=== PATIENT | female | born 1960 | race Caucasian/White ===

== ENCOUNTER → 2016-06-07 | Outpatient (CLI) | payer OTHER ==
[~2016-06-07] MED LIST: 'PARAFON FORTE500 M1 PO; ALBUTEROL0.09 MG/A2 INH; AMLODIPINE BESYL5 MG PO; AMOXICILLIN500 M2 PO; AMOXICILLIN500 MG PO; AMOXIL500 MG PO; ASPIRIN81 M1 PO; AUGMENTIN 875 M1 TAB PO; CARDURA4 MG PO; CHOLESTEROL PILL; CIPRO500 MG PO; CIPROFLOXACIN500 MG PO; CLARITIN10 MG PO; CYCLOBENZAPRINE10 MG PO; DIABETIC PILL; DOXYCYCLINE100 M3 PO; DUONEB 3 MG/3 ML3 M1 INH; FENOFIBRATE130 M1 PO; FIORICET 325 MG1 TAB PO; FLONASE0.05 MG/AC NS; FLOVENT HFA12 GM IH; GLIPIZIDE5 MG PO; GLUCOPHAGE500 M1 PO; GLYXAMBI1 TAB PO; HYCODAN 1.5 MG480 M1 PO; HYDROCODONE BIT1 T11 PO; JARDIANCE10 MG PO; LEVAQUIN750 M1 PO; LOMOTIL 0.025 M1 TA1 PO; LOTREL 5 MG-101 CAP PO; MEDROL DOSEPAK4 MG PO; NEXIUM40 MG PO; NICOTINE T21 MG/24 H TD; NORCO 10-325 T1 EACH PO; NORCO 5-325 TA1 EACH PO; NORCO 7.5-3251 EACH PO; NORTRIPTYLINE H10 M1 PO; NORVASC5 MG PO; ONGLYZA5 MG PO; PERCOCET 325 MG1 TA5 PO; PREDNICOT10 MG PO; PREDNICOT20 MG PO; PREDNISONE10 MG PO; PYRIDIUM200 MG PO; REGLAN10 M1 PO; ROBITUSSIN DM120 ML PO; TENORMIN100 MG PO; TENORMIN25 MG PO; TRADJENTA5 M1 PO; TRAMADOL HCL50 MG PO; TRIAMTERENE/HCT1 TAB PO; VALIUM10 MG PO; VIBRAMYCIN100 MG PO; VICODIN 5/500 505 MG PO; VISTARIL25 M2 PO; VITAMIN D-32000 UNIT PO; VITAMIN D2400 UNIT PO; ZITHROMAX Z PA250 MG PO; ZITHROMAX250 MG PO; ZOCOR40 MG PO; ZOFRAN ODT4 MG SL; [UNRECOGNIZED DRUG - REMARK]
[2016-06-07 16:25] LABS: BASO # 0.1 10*3/uL (0.0-0.1); BASO % 1.2 % (0.0-1.0); EOS # 0.3 10*3/uL (0.0-0.4); EOS % 3.4 % (1.0-4.0); HEMATOCRIT 43.6 % (37.0-47.0); HEMOGLOBIN 14.1 g/dl (12.0-16.0); LYMPH # 2.6 10*3/uL (1.3-4.4); MEAN CELL VOLUME 91.4 fl (81.0-99.0); MEAN CORPUSCULAR HGB 29.6 pg (27.0-31.0); MEAN CORPUSCULAR HGB CONC 32.3 g/dl (33.0-37.0); MONO # 0.8 10*3/uL (0.1-1.0); MONO % 8.2 % (3.0-9.0); NEUT # 5.4 10*3/uL (2.3-7.9); NEUT % 58.9 % (47.0-73.0); PLATELET COUNT AUTOMATED 286 10*3/uL (130-400); RED BLOOD COUNT 4.77 10*6/uL (4.10-5.10); RED CELL DISTRI WIDTH 13.3 % (0-14.5); WHITE BLOOD COUNT 9.1 10*3/uL (4.8-10.8)
[2016-06-07 16:36] LABS: BILIRUBIN NEGATIVE (NEGATIVE); BLOOD NEGATIVE (NEGATIVE); CLARITY SL CLOUDY (CLEAR); COLOR YELLOW (YELLOW); GLUCOSE 2+ (NEGATIVE); KETONE NEGATIVE (NEGATIVE); LEUKO ESTERASE 1+ (NEGATIVE); NITRITE NEGATIVE (NEGATIVE); PH 7.5 (5.0-9.0); PROTEIN NEGATIVE (NEGATIVE); UROBILINOGEN 0.2 E.U./dl (0.2-1.0)
[2016-06-07 16:44] LABS: URINE TP/CRE RATIO 0.1 (<0.21)
[2016-06-07 16:50] LABS: ALBUMIN 3.9 gm/dl (3.1-4.5); PHOSPHOROUS 3.4 mg/dL (2.5-4.9); POTASSIUM 3.7 mmol/L (3.5-5.1)
[2016-06-07 17:01] LABS: VITAMIN D, 25-HYDROXY 36.5 ng/mL (30-100)
[2016-06-07 17:02] LABS: PTH INTACT 37.6 pg/mL (14.0-72.0)
[2016-06-07 17:07] LABS: BACTERIA TRACE; EPITHELIAL CELLS 15-20
== END | disposition home or self-care (01) ==
LOC: LAB 15:48
PROVIDERS: Internal Medicine Nephrology
DX: N18.3 Chronic kidney disease, stage 3 (moderate) (principal); E55.9 Vitamin D deficiency, unspecified

== ENCOUNTER 2016-06-13 19:31 | Emergency (ER) | payer OTHER ==
[~2016-06-13] VITALS: Ht 157.4 cm; Wt 80.7 kg
[~2016-06-13 19:31] MED LIST changes: -ASPIRIN81 M1 PO; -DOXYCYCLINE100 M3 PO; -LEVAQUIN750 M1 PO; -PREDNISONE10 MG PO
[2016-06-13 20:19] LABS: BASO # 0.1 10*3/uL (0.0-0.1); EOS # 0.1 10*3/uL (0.0-0.4); HEMATOCRIT 44.8 % (37.0-47.0); HEMOGLOBIN 14.8 g/dl (12.0-16.0); LYMPH # 1.6 10*3/uL (1.3-4.4); LYMPH % 15.3 % (27.0-41.0); MEAN CELL VOLUME 90.1 fl (81.0-99.0); MEAN CORPUSCULAR HGB 29.8 pg (27.0-31.0); MEAN PLATELET VOLUME 10.9 fl (9.6-12.3); MONO # 0.5 10*3/uL (0.1-1.0); NEUT # 8.1 10*3/uL (2.3-7.9); NEUT % 77.3 % (47.0-73.0); PLATELET COUNT AUTOMATED 295 10*3/uL (130-400); RED BLOOD COUNT 4.97 10*6/uL (4.10-5.10); RED CELL DISTRI WIDTH 13.2 % (0-14.5); WHITE BLOOD COUNT 10.5 10*3/uL (4.8-10.8)
[2016-06-13 20:35] LABS: ALBUMIN 3.9 gm/dl (3.1-4.5); BILIRUBIN, TOTAL 0.3 mg/dl (0.2-1.0)
[2016-06-13] MEDS ORDERED: DOXYCYCLINE100 M3 PO (20:59)
[2016-06-13] MEDS ORDERED: PREDNISONE10 MG PO (20:59)
[2016-06-13] MEDS ORDERED: VISTARIL25 M2 PO (21:01)
[2016-08-09] MEDS ORDERED: MEDROL DOSEPAK4 MG PO (17:23)
[2016-08-09] MEDS ORDERED: LEVAQUIN750 M1 PO (17:23)
== END 2016-06-13 21:02 | disposition home or self-care (01) ==
LOC: ED 19:31
PROVIDERS: Registered Nurse
DX: J40 Bronchitis, not specified as acute or chronic (principal); F41.9 Anxiety disorder, unspecified; J44.9 Chronic obstructive pulmonary disease, unspecified; F17.210 Nicotine dependence, cigarettes, uncomplicated; Z88.1 Allergy status to other antibiotic agents; Z88.5 Allergy status to narcotic agent; Z88.6 Allergy status to analgesic agent

== ENCOUNTER 2016-06-22 20:07 | Inpatient (IN) | payer OTHER ==
[~2016-06-22] VITALS: Ht 160 cm; Wt 76.8 kg
--- NOTE | ~2016-06-22 | CON ---
[place], [place] REPORT OF CONSULTATION [id number] UN[facility] #: [id number] ROOM: 515 DOCTOR: MINERVA ADDISON MD BIRTHDATE: [birth year] DOS: 06/23/2016 HISTORY OF PRESENT ILLNESS: This is a 55-year-old -[place] woman with a history of essential hypertension, diabetes mellitus, hyperlipidemia, chronic kidney disease but no family history of premature coronary disease. She has smoked in the past and now is no longer using tobacco products. She has significant COPD that limits her activity. She has had a tubal ligation. No other major surgery. She was admitted to the hospital to the Emergency Department because of left-sided chest pain that was rather sharp and stabbing at times, it appeared a few days ago, and it still bothers her. She also has some jumping feeling in the left side of the chest. She feels it may be her heart skipping beat, but she has not had any dizziness, loss of consciousness. No swelling of the lower extremities. There has not been any sweating or nausea or worsening breathing with the chest pain. In the past, she does not recall any exertional symptoms. HOME MEDICATIONS: Include amlodipine 5 mg daily, atenolol 100 mg daily, doxazosin 4 mg daily, Jardiance, Claritin, Tradjenta, prednisone, Zocor, doxycycline, and albuterol inhaler. PHYSICAL EXAMINATION: GENERAL: The patient who is slightly overweight, very pleasant, alert. Her complexion is fine. There is no thyromegaly or finger clubbing. VITAL SIGNS: Pulse is regular at 60 beats per minute, blood pressure 126/78. NECK: JVP is normal. No bruit in the neck. HEART: There is no cardiomegaly. Auscultation reveals distant heart sound. EXTREMITIES: No edema of the lower extremity. Pedal pulses are easily appreciated. HEART: She has oxygen on and is not tachypneic. Percussion note is normal. RESPIRATORY: Auscultation with fairly improved condition, breath sounds with some rhonchi, but no wheezing. The third, fourth, fifth, and sixth left costochondral junctions are exquisitely tender, not so on the right side. ECGs have shown normal sinus rhythm and a normal pattern. Troponin I levels are also normal. IMPRESSION: This patient's chest pain is most likely due to left-sided costochondritis. I do not recommend any further cardiac workup. NSAIDs are usually used to help with inflammation, which are of questionable use to begin with because of renal insufficiency these are contraindicated. I think tramadol for a few days may be helpful along with some hot packs to the local area. I thank you for this consult. [place], [place] REPORT OF CONSULTATION NAME: ALYSON GRECO UNIT #: [id number] ROOM: [facility] DOCTOR: MINERVA ADDISON MD BIRTHDATE: [birth year] MINERVA ADDSION MD CM:CONSTR:REPORT OF CONSULTATION 1255 06/23/16 2258 interface
[~2016-06-22 20:07] MED LIST changes: +DOXYCYCLINE100 M3 PO; +PREDNISONE10 MG PO
[2016-06-22 20:41] VITALS: BP 147/98
[2016-06-22 21:17] LABS: BASO # 0.1 10*3/uL (0.0-0.1); BASO % 0.3 % (0.0-1.0); HEMATOCRIT 47.3 % (37.0-47.0); HEMOGLOBIN 15.9 g/dl (12.0-16.0); IG # 0.3 10*3/uL (0.0-0.1); LYMPH # 1.6 10*3/uL (1.3-4.4); MEAN CELL VOLUME 88.9 fl (81.0-99.0); MEAN CORPUSCULAR HGB 29.9 pg (27.0-31.0); MEAN CORPUSCULAR HGB CONC 33.6 g/dl (33.0-37.0); MEAN PLATELET VOLUME 11.2 fl (9.6-12.3); MONO # 0.7 10*3/uL (0.1-1.0); MONO % 3.7 % (3.0-9.0); NEUT # 17.2 10*3/uL (2.3-7.9); NEUT % 86.7 % (47.0-73.0); PLATELET COUNT AUTOMATED 329 10*3/uL (130-400); RED BLOOD COUNT 5.32 10*6/uL (4.10-5.10); RED CELL DISTRI WIDTH 12.9 % (0-14.5); WHITE BLOOD COUNT 19.8 10*3/uL (4.8-10.8)
[2016-06-22 21:36] LABS: BUN 34 mg/dl (7-24); CARBON DIOXIDE 24 mmol/L (21-32); CHLORIDE 105 mmol/L (98-107); EST GLOM FILT AFRICAN AMERICAN 42 ml/min; GLUCOSE 236 mg/dL (65-99); POTASSIUM 4.2 mmol/L (3.5-5.1); SODIUM 141 mmol/L (136-145)
[2016-06-22 21:46] LABS: TROPONIN I < 0.015 ng/ml (<0.5)
[2016-06-22 22:02] VITALS: BP 134/84
[2016-06-22 22:54] LABS: ALKALINE PHOSPHATASE 89 U/L (45-117); BILIRUBIN, DIRECT < 0.1 mg/dL (0.0-0.2); BILIRUBIN, TOTAL 0.4 mg/dl (0.2-1.0); SGOT/AST 12 IU/L (3-35); SGPT/ALT 28 U/L (12-78); TOTAL PROTEIN 8.3 gm/dL (6.4-8.2)
[2016-06-22 23:15] VITALS: BP 140/76
[2016-06-22 23:46] LABS: BILIRUBIN NEGATIVE (NEGATIVE); BLOOD NEGATIVE (NEGATIVE); CLARITY SL CLOUDY (CLEAR); COLOR YELLOW (YELLOW); GLUCOSE 3+ (NEGATIVE); KETONE NEGATIVE (NEGATIVE); LEUKO ESTERASE NEGATIVE (NEGATIVE); NITRITE NEGATIVE (NEGATIVE); PH 5.5 (5.0-9.0); PROTEIN NEGATIVE (NEGATIVE); UROBILINOGEN 0.2 E.U./dl (0.2-1.0)
[2016-06-22 23:56] LABS: BASO # 0.1 10*3/uL (0.0-0.1); BASO % 0.3 % (0.0-1.0); HEMATOCRIT 47.8 % (37.0-47.0); HEMOGLOBIN 16.2 g/dl (12.0-16.0); IG # 0.2 10*3/uL (0.0-0.1); LYMPH # 1.6 10*3/uL (1.3-4.4); LYMPH % 7.2 % (27.0-41.0); MEAN CELL VOLUME 88.5 fl (81.0-99.0); MEAN CORPUSCULAR HGB CONC 33.9 g/dl (33.0-37.0); MEAN PLATELET VOLUME 11.9 fl (9.6-12.3); MONO # 0.6 10*3/uL (0.1-1.0); MONO % 2.6 % (3.0-9.0); NEUT # 19.3 10*3/uL (2.3-7.9); NEUT % 88.9 % (47.0-73.0); PLATELET COUNT AUTOMATED 295 10*3/uL (130-400); RED CELL DISTRI WIDTH 13.1 % (0-14.5); WHITE BLOOD COUNT 21.8 10*3/uL (4.8-10.8)
[2016-06-23] LABS: URINE REFLEX COMMENT NO (NO); WBC 0-2 wbc/hpf (0-5)
[2016-06-23 00:21] VITALS: BP 124/82
[2016-06-23 02:29] VITALS: BP 132/76
[2016-06-23 06:36] VITALS: BP 126/78
[2016-06-23 07:00] LABS: BASO % 0.2 % (0.0-1.0); HEMOGLOBIN 15.2 g/dl (12.0-16.0); IG # 0.2 10*3/uL (0.0-0.1); LYMPH # 2.6 10*3/uL (1.3-4.4); LYMPH % 14.5 % (27.0-41.0); MEAN CELL VOLUME 88.8 fl (81.0-99.0); MEAN CORPUSCULAR HGB CONC 33.8 g/dl (33.0-37.0); MEAN PLATELET VOLUME 11.4 fl (9.6-12.3); MONO # 0.7 10*3/uL (0.1-1.0); NEUT # 14.3 10*3/uL (2.3-7.9); NEUT % 80.5 % (47.0-73.0); PLATELET COUNT AUTOMATED 318 10*3/uL (130-400); RED BLOOD COUNT 5.07 10*6/uL (4.10-5.10); RED CELL DISTRI WIDTH 13.1 % (0-14.5); WHITE BLOOD COUNT 17.7 10*3/uL (4.8-10.8)
[2016-06-23 07:01] LABS: HEMOGLOBIN A1c 6.8 % (4.8-5.6)
[2016-06-23 07:15] LABS: BUN 30 mg/dl (7-24); CARBON DIOXIDE 26 mmol/L (21-32); CHLORIDE 105 mmol/L (98-107); CHOLESTEROL 180 mg/dL (<200); EST GLOM FILT AFRICAN AMERICAN 50 ml/min; FREE T4 1.36 ng/dl (0.76-1.46); GLUCOSE 155 mg/dL (65-99); HDL CHOLESTEROL 53 mg/dl (40-60); LDL CHOLESTEROL 104 mg/dL (9-159); MAGNESIUM 2.2 mg/dL (1.5-2.1); POTASSIUM 4.2 mmol/L (3.5-5.1); SODIUM 141 mmol/L (136-145); THYROID STIM HORMONE (HS) 0.517 uIU/ml (0.358-4.75); TRIGLYCERIDES 115 mg/dl (<150); VLDL CHOLESTEROL 23 mg/dL (6-40)
[2016-06-23 07:19] LABS: TROPONIN I < 0.015 ng/ml (<0.5)
[2016-06-23 07:36] LABS: FOLIC ACID 13.56 ng/mL (>5.38)
[2016-06-23 08:00] VITALS: BP 116/76
[2016-06-23 16:00] VITALS: BP 103/63
[2016-06-23 20:00] VITALS: BP 134/80
[2016-06-24] VITALS: BP 103/63
[2016-06-24 06:32] LABS: HEMATOCRIT 42.5 % (37.0-47.0); HEMOGLOBIN 13.9 g/dl (12.0-16.0); MEAN CELL VOLUME 90.8 fl (81.0-99.0); MEAN CORPUSCULAR HGB 29.7 pg (27.0-31.0); MEAN CORPUSCULAR HGB CONC 32.7 g/dl (33.0-37.0); MEAN PLATELET VOLUME 11.7 fl (9.6-12.3); PLATELET COUNT AUTOMATED 266 10*3/uL (130-400); RED BLOOD COUNT 4.68 10*6/uL (4.10-5.10); RED CELL DISTRI WIDTH 13.3 % (0-14.5); WHITE BLOOD COUNT 14.1 10*3/uL (4.8-10.8)
[2016-06-24 06:55] LABS: MAGNESIUM 2.1 mg/dL (1.5-2.1); PHOSPHOROUS 2.8 mg/dL (2.5-4.9); POTASSIUM 4.1 mmol/L (3.5-5.1)
[2016-06-24 07:48] LABS: BASOPHIL # 0.3 10*3/uL (0-0.1); BASOPHILS 2 % (0-1); LYMPHOCYTE # 5.4 10*3/uL (1.3-4.4); MONOCYTE # 1.1 10*3/uL (0.1-1.0); MYELOCYTES 1 % (0-0); NEUTROPHIL # 7.2 10*3/uL (2.3-7.9); NEUTROPHILS 51 % (47-73); PLATELET SUFFICIENCY NORMAL (NORMAL); TOTAL CELLS COUNTED 100 #CELLS
[2016-06-24 08:00] VITALS: BP 100/55; BP 96/55
[2016-06-24] MEDS ORDERED: ASPIRIN81 M1 PO (08:46)
[2016-08-09] MEDS ORDERED: LEVAQUIN750 M1 PO (17:23)
[2016-08-09] MEDS ORDERED: MEDROL DOSEPAK4 MG PO (17:23)
== END 2016-06-24 11:00 | disposition home or self-care (01) | DRG 871 ==
LOC: ED 20:07 → 5E 06-23 02:42 → EDHOLD 06-23 02:42 → 5E 06-23 06:55
PROVIDERS: Emergency Medicine Emergency Medical Services; Internal Medicine
DX: A41.9 Sepsis, unspecified organism (principal); N17.0 Acute kidney failure with tubular necrosis; N20.1 Calculus of ureter; R07.9 Chest pain, unspecified; E83.41 Hypermagnesemia; E78.5 Hyperlipidemia, unspecified; I12.9 Hypertensive chronic kidney disease with stage 1 through stage 4 chronic kidney disease, or unspecified chronic kidney disease; N18.3 Chronic kidney disease, stage 3 (moderate); E86.0 Dehydration; E11.65 Type 2 diabetes mellitus with hyperglycemia; F41.1 Generalized anxiety disorder; J44.9 Chronic obstructive pulmonary disease, unspecified; Z98.51 Tubal ligation status; Z98.890 Other specified postprocedural states; Z87.891 Personal history of nicotine dependence; Z79.899 Other long term (current) drug therapy; Z88.1 Allergy status to other antibiotic agents; Z88.8 Allergy status to other drugs, medicaments and biological substances; Z82.49 Family history of ischemic heart disease and other diseases of the circulatory system; Z83.3 Family history of diabetes mellitus; Z82.5 Family history of asthma and other chronic lower respiratory diseases

== ENCOUNTER 2016-09-03 15:08 | Emergency (ER) | payer OTHER ==
[~2016-09-03] VITALS: Ht 157.4 cm; Wt 81.6 kg
[~2016-09-03 15:08] MED LIST changes: +ASPIRIN81 M1 PO; +LEVAQUIN750 M1 PO
[2016-09-03] MEDS ORDERED: ASPIRIN ADULT L81 M2 PO (15:27)
[2016-09-03] MEDS ORDERED: DIAZEPAM5 MG PO (15:27)
[2016-09-03] MEDS ORDERED: HYDROCODONE BIT1 T20 PO (15:28)
[2016-09-03 16:01] LABS: BASO # 0.1 10*3/uL (0.0-0.1); BASO % 0.7 % (0.0-1.0); EOS # 0.4 10*3/uL (0.0-0.4); EOS % 4.8 % (1.0-4.0); HEMATOCRIT 39.9 % (37.0-47.0); HEMOGLOBIN 13.4 g/dl (12.0-16.0); LYMPH # 1.6 10*3/uL (1.3-4.4); LYMPH % 21.4 % (27.0-41.0); MEAN CELL VOLUME 87.9 fl (81.0-99.0); MEAN CORPUSCULAR HGB 29.5 pg (27.0-31.0); MEAN CORPUSCULAR HGB CONC 33.6 g/dl (33.0-37.0); MEAN PLATELET VOLUME 10.3 fl (9.6-12.3); MONO # 0.4 10*3/uL (0.1-1.0); MONO % 5.8 % (3.0-9.0); PLATELET COUNT AUTOMATED 283 10*3/uL (130-400); RED BLOOD COUNT 4.54 10*6/uL (4.10-5.10); RED CELL DISTRI WIDTH 13.4 % (0-14.5); WHITE BLOOD COUNT 7.4 10*3/uL (4.8-10.8)
[2016-09-03 16:17] LABS: BILIRUBIN, TOTAL 0.4 mg/dl (0.2-1.0); POTASSIUM 4.4 mmol/L (3.5-5.1); TOTAL PROTEIN 7.9 gm/dL (6.4-8.2)
== END 2016-09-03 17:02 | disposition home or self-care (01) ==
LOC: ED 15:08
PROVIDERS: Registered Nurse
DX: M54.5 Low back pain (principal); Z88.1 Allergy status to other antibiotic agents; Z88.6 Allergy status to analgesic agent; Z79.82 Long term (current) use of aspirin; Z79.899 Other long term (current) drug therapy

== ENCOUNTER → 2016-12-14 | Outpatient (CLI) | payer OTHER ==
[~2016-12-14] MED LIST changes: +ASPIRIN ADULT L81 M2 PO; +DIAZEPAM5 MG PO; +HYDROCODONE BIT1 T20 PO
== END | disposition home or self-care (01) ==
LOC: MAMMO 12-07 14:30
DX: Z12.31 Encounter for screening mammogram for malignant neoplasm of breast (principal)

== ENCOUNTER → 2016-12-28 | Outpatient (CLI) | payer OTHER | END | disposition home or self-care (01) | LOC: RAD 15:28 | DX: M51.37 Other intervertebral disc degeneration, lumbosacral region (principal); M47.817 Spondylosis without myelopathy or radiculopathy, lumbosacral region; M48.07 Spinal stenosis, lumbosacral region ==

== ENCOUNTER → 2017-02-24 | Outpatient (CLI) | payer OTHER ==
[2017-02-24 15:56] LABS: BASO # 0.1 10*3/uL (0.0-0.1); BASO % 1.1 % (0.0-1.0); EOS # 0.3 10*3/uL (0.0-0.4); EOS % 3.6 % (1.0-4.0); HEMOGLOBIN 12.9 g/dl (12.0-16.0); LYMPH # 2.3 10*3/uL (1.3-4.4); LYMPH % 25.1 % (27.0-41.0); MEAN CELL VOLUME 88.6 fl (81.0-99.0); MEAN CORPUSCULAR HGB 30.1 pg (27.0-31.0); MEAN CORPUSCULAR HGB CONC 33.9 g/dl (33.0-37.0); MEAN PLATELET VOLUME 10.5 fl (9.6-12.3); MONO # 0.5 10*3/uL (0.1-1.0); MONO % 5.5 % (3.0-9.0); NEUT # 5.9 10*3/uL (2.3-7.9); NEUT % 64.4 % (47.0-73.0); PLATELET COUNT AUTOMATED 276 10*3/uL (130-400); RED BLOOD COUNT 4.29 10*6/uL (4.10-5.10); RED CELL DISTRI WIDTH 13.2 % (0-14.5); WHITE BLOOD COUNT 9.2 10*3/uL (4.8-10.8)
[2017-02-24 16:27] LABS: ALBUMIN 3.6 gm/dl (3.1-4.5); CREATININE 1.45 mg/dL (0.55-1.02); POTASSIUM 4.2 mmol/L (3.5-5.1); TOTAL PROTEIN 7.6 gm/dL (6.4-8.2)
[2017-02-24 16:33] LABS: THYROID STIM HORMONE (HS) 3.6 uIU/ml (0.358-4.75)
== END | disposition home or self-care (01) ==
LOC: LAB 15:17
PROVIDERS: Internal Medicine
DX: E11.9 Type 2 diabetes mellitus without complications (principal); E78.2 Mixed hyperlipidemia

== ENCOUNTER 2017-02-28 17:26 | Emergency (ER) | payer OTHER ==
[~2017-02-28] VITALS: Ht 157.4 cm; Wt 89.4 kg
== END 2017-02-28 18:15 | disposition home or self-care (01) ==
LOC: ED 17:26
DX: T16.1XXA Foreign body in right ear, initial encounter (principal); F17.200 Nicotine dependence, unspecified, uncomplicated; Z98.51 Tubal ligation status; Z79.899 Other long term (current) drug therapy; Z79.82 Long term (current) use of aspirin; Z88.1 Allergy status to other antibiotic agents; Z88.6 Allergy status to analgesic agent; Y92.9 Unspecified place or not applicable

== ENCOUNTER → 2017-03-24 | Outpatient (CLI) | payer OTHER ==
[2017-03-24 16:02] LABS: BASO # 0.1 10*3/uL (0.0-0.1); BASO % 1.2 % (0.0-1.0); EOS # 0.3 10*3/uL (0.0-0.4); EOS % 3.3 % (1.0-4.0); HEMATOCRIT 39.2 % (37.0-47.0); HEMOGLOBIN 13.3 g/dl (12.0-16.0); LYMPH # 2.7 10*3/uL (1.3-4.4); LYMPH % 29.9 % (27.0-41.0); MEAN CELL VOLUME 88.5 fl (81.0-99.0); MEAN CORPUSCULAR HGB CONC 33.9 g/dl (33.0-37.0); MEAN PLATELET VOLUME 11.4 fl (9.6-12.3); MONO # 0.6 10*3/uL (0.1-1.0); MONO % 6.9 % (3.0-9.0); NEUT # 5.3 10*3/uL (2.3-7.9); NEUT % 58.4 % (47.0-73.0); PLATELET COUNT AUTOMATED 278 10*3/uL (130-400); RED BLOOD COUNT 4.43 10*6/uL (4.10-5.10); RED CELL DISTRI WIDTH 13.1 % (0-14.5); WHITE BLOOD COUNT 9.1 10*3/uL (4.8-10.8)
[2017-03-24 16:10] LABS: BILIRUBIN NEGATIVE (NEGATIVE); BLOOD NEGATIVE (NEGATIVE); CLARITY CLEAR (CLEAR); COLOR YELLOW (YELLOW); GLUCOSE NEGATIVE (NEGATIVE); KETONE NEGATIVE (NEGATIVE); LEUKO ESTERASE NEGATIVE (NEGATIVE); NITRITE NEGATIVE (NEGATIVE); PH 5.5 (5.0-9.0); SPECIFIC GRAVITY >= 1.030 (1.005-1.030); UROBILINOGEN 0.2 E.U./dl (0.2-1.0)
[2017-03-24 16:17] LABS: ALBUMIN 3.8 gm/dl (3.1-4.5); CREATININE 1.4 mg/dL (0.55-1.02); PHOSPHOROUS 2.7 mg/dL (2.5-4.9); POTASSIUM 4.2 mmol/L (3.5-5.1)
[2017-03-24 16:18] LABS: BACTERIA 1+; EPITHELIAL CELLS 21-30; MUCOUS 1+
[2017-03-24 16:26] LABS: PTH INTACT 24.1 pg/mL (14.0-72.0); VITAMIN D, 25-HYDROXY 31.9 ng/mL (30-100)
== END | disposition home or self-care (01) ==
LOC: LAB 15:36
PROVIDERS: Internal Medicine Nephrology
DX: E55.9 Vitamin D deficiency, unspecified (principal); N18.3 Chronic kidney disease, stage 3 (moderate)

== ENCOUNTER 2017-06-04 18:16 | Emergency (ER) | payer OTHER ==
[~2017-06-04] VITALS: Ht 154.9 cm; Wt 92.5 kg
[2017-06-04 19:27] LABS: BASO # 0.1 10*3/uL (0.0-0.1); BASO % 0.9 % (0.0-1.0); EOS # 0.3 10*3/uL (0.0-0.4); EOS % 2.6 % (1.0-4.0); HEMATOCRIT 42.1 % (37.0-47.0); HEMOGLOBIN 14.2 g/dl (12.0-16.0); LYMPH # 2.3 10*3/uL (1.3-4.4); LYMPH % 20.1 % (27.0-41.0); MEAN CELL VOLUME 88.3 fl (81.0-99.0); MEAN CORPUSCULAR HGB 29.8 pg (27.0-31.0); MEAN CORPUSCULAR HGB CONC 33.7 g/dl (33.0-37.0); MEAN PLATELET VOLUME 10.7 fl (9.6-12.3); MONO # 0.7 10*3/uL (0.1-1.0); MONO % 6.5 % (3.0-9.0); NEUT # 7.8 10*3/uL (2.3-7.9); NEUT % 69.3 % (47.0-73.0); PLATELET COUNT AUTOMATED 337 10*3/uL (130-400); RED BLOOD COUNT 4.77 10*6/uL (4.10-5.10); RED CELL DISTRI WIDTH 12.9 % (0-14.5); WHITE BLOOD COUNT 11.3 10*3/uL (4.8-10.8)
[2017-06-04 19:46] LABS: ALBUMIN 3.9 gm/dl (3.1-4.5); ALKALINE PHOSPHATASE 86 U/L (45-117); BUN 17 mg/dl (7-24); CHLORIDE 103 mmol/L (98-107); CREATININE 1.37 mg/dL (0.55-1.02); LIPASE 169 U/L (73-393); POTASSIUM 3.9 mmol/L (3.5-5.1); SGOT/AST 35 IU/L (3-35); SGPT/ALT 48 U/L (12-78); SODIUM 140 mmol/L (136-145); TOTAL PROTEIN 8.5 gm/dL (6.4-8.2); TROPONIN I < 0.015 ng/ml (<0.045)
[2017-06-04] MEDS ORDERED: CYCLOBENZAPRINE5 M3 PO (20:11)
[2017-06-04] MEDS ORDERED: AMOXICILLIN500 M2 PO (20:16)
== END 2017-06-04 20:27 | disposition home or self-care (01) ==
LOC: ED 18:16
PROVIDERS: Emergency Medicine Emergency Medical Services
DX: S39.012A Strain of muscle, fascia and tendon of lower back, initial encounter (principal); J40 Bronchitis, not specified as acute or chronic; M51.37 Other intervertebral disc degeneration, lumbosacral region; J44.9 Chronic obstructive pulmonary disease, unspecified; I12.9 Hypertensive chronic kidney disease with stage 1 through stage 4 chronic kidney disease, or unspecified chronic kidney disease; E11.22 Type 2 diabetes mellitus with diabetic chronic kidney disease; N18.9 Chronic kidney disease, unspecified; E78.5 Hyperlipidemia, unspecified; Z87.891 Personal history of nicotine dependence; Z88.1 Allergy status to other antibiotic agents; Z88.6 Allergy status to analgesic agent; Z79.899 Other long term (current) drug therapy; Z79.82 Long term (current) use of aspirin; X58.XXXA Exposure to other specified factors, initial encounter; Y93.89 Activity, other specified; Y92.89 Other specified places as the place of occurrence of the external cause; Y99.8 Other external cause status

== ENCOUNTER 2017-08-20 14:48 | Emergency (ER) | payer OTHER ==
[~2017-08-20] VITALS: Ht 160 cm; Wt 93.4 kg
[~2017-08-20 14:48] MED LIST changes: +CYCLOBENZAPRINE5 M3 PO
[2017-08-20] MEDS ORDERED: LIPITOR20 MG PO (14:57)
[2017-08-20] MEDS ORDERED: DELTASONE20 M1 PO ×2 (16:32→16:41)
[2017-08-20] MEDS ORDERED: VIBRAMYCIN100 MG PO ×2 (16:32→16:41)
== END 2017-08-20 16:37 | disposition home or self-care (01) ==
LOC: ED 14:48
DX: J40 Bronchitis, not specified as acute or chronic (principal); F17.200 Nicotine dependence, unspecified, uncomplicated; Z98.51 Tubal ligation status; Z79.899 Other long term (current) drug therapy; Z79.82 Long term (current) use of aspirin; Z88.1 Allergy status to other antibiotic agents; Z88.6 Allergy status to analgesic agent

== ENCOUNTER 2017-11-06 16:56 | Emergency (ER) | payer OTHER ==
[~2017-11-06] VITALS: Wt 90.3 kg
[~2017-11-06 16:56] MED LIST changes: +DELTASONE20 M1 PO; +LIPITOR20 MG PO
== END 2017-11-06 17:32 | disposition home or self-care (01) ==
LOC: ED 16:56
DX: H57.8 Other specified disorders of eye and adnexa (principal); H57.11 Ocular pain, right eye; Z87.891 Personal history of nicotine dependence; Z98.51 Tubal ligation status; Z98.890 Other specified postprocedural states; Z79.82 Long term (current) use of aspirin; Z79.899 Other long term (current) drug therapy; Z88.6 Allergy status to analgesic agent; Z88.8 Allergy status to other drugs, medicaments and biological substances; Z88.1 Allergy status to other antibiotic agents

== ENCOUNTER 2017-12-10 21:27 | Emergency (ER) | payer OTHER ==
[~2017-12-10] VITALS: Wt 84.8 kg
--- NOTE | ~2017-12-10 | EKG ---
[place], [place] ELECTROCARDIOGRAM REPORT NAME: ALYSON GRECO UNIT #: [id number] ROOM: DOCTOR: EPIPHANY DRAFT REPORT BIRTHDATE: [birth year] [facility] Test Date: 2017-12-10 Test Time: 22:09:46 Pat Name: ALYSON GRECO Department: ER Room: Gender: F [employer] In[employer]: 51 : 1960 Requested By: EARLINE GAMA PA-C Order Number: [id number] Reading MD: Ángel Villareal MD Measurements Intervals [place] Rate: 104 P: 71 MO: 189 QRS: -17 QRSD: 92 T: 49 QT: 308 QTc: 405 Interpretive Statements Sinus tachycardia Low voltage, precordial leads LVH by voltage Electronically Signed On 12-11-2017 14:24:40 PDT by Ángel Villareal MD CM:EKGRPT:ELECTROCARDIOGRAM REPORT 08 1424 EARLINE GAMA PA-C EPIPHANY DRAFT REPORT EARLINE GAMA PA-C
[2017-12-10] MEDS ORDERED: BASAG SOL SQ (21:34)
[2017-12-10 22:25] LABS: BASO # 0.1 10*3/uL (0.0-0.1); BASO % 0.8 % (0.0-1.0); EOS # 0.2 10*3/uL (0.0-0.4); EOS % 2.3 % (1.0-4.0); HEMATOCRIT 39.8 % (37.0-47.0); HEMOGLOBIN 13.1 g/dl (12.0-16.0); LYMPH % 19.7 % (27.0-41.0); MEAN CELL VOLUME 88.6 fl (81.0-99.0); MEAN CORPUSCULAR HGB 29.2 pg (27.0-31.0); MEAN CORPUSCULAR HGB CONC 32.9 g/dl (33.0-37.0); MEAN PLATELET VOLUME 11.1 fl (9.6-12.3); MONO # 0.7 10*3/uL (0.1-1.0); MONO % 6.8 % (3.0-9.0); NEUT # 7.3 10*3/uL (2.3-7.9); PLATELET COUNT AUTOMATED 285 10*3/uL (130-400); RED BLOOD COUNT 4.49 10*6/uL (4.10-5.10); RED CELL DISTRI WIDTH 13.2 % (0-14.5); WHITE BLOOD COUNT 10.4 10*3/uL (4.8-10.8)
[2017-12-10 22:34] LABS: INTERNATIONAL NORM RATIO 0.9 (2.0-3.5)
[2017-12-10 22:43] LABS: ALKALINE PHOSPHATASE 72 U/L (45-117); BUN 20 mg/dl (7-24); CHLORIDE 107 mmol/L (98-107); CREATININE 1.37 mg/dL (0.55-1.02); POTASSIUM 3.8 mmol/L (3.5-5.1); SGOT/AST 21 IU/L (3-35); SGPT/ALT 36 U/L (12-78); SODIUM 142 mmol/L (136-145)
[2017-12-10 22:45] LABS: TROPONIN I < 0.015 ng/ml (<0.045)
[2017-12-10 23:29] LABS: BILIRUBIN NEGATIVE (NEGATIVE); BLOOD NEGATIVE (NEGATIVE); CLARITY CLEAR (CLEAR); COLOR YELLOW (YELLOW); GLUCOSE NEGATIVE (NEGATIVE); KETONE NEGATIVE (NEGATIVE); LEUKO ESTERASE NEGATIVE (NEGATIVE); NITRITE NEGATIVE (NEGATIVE); PH 6.5 (5.0-9.0); SPECIFIC GRAVITY <= 1.005 (1.005-1.030); UROBILINOGEN 0.2 E.U./dl (0.2-1.0)
[2017-12-10 23:34] LABS: EPITHELIAL CELLS 0-5; RBC 0-2 rbc/hpf (0-2)
[2017-12-11] MEDS ORDERED: VIBRAMYCIN100 MG PO (00:04)
[2017-12-11] MEDS ORDERED: DELTASONE20 M1 PO (00:04)
== END 2017-12-11 01:02 | disposition home or self-care (01) ==
LOC: ED 21:27
PROVIDERS: Physician Assistant
DX: J44.1 Chronic obstructive pulmonary disease with (acute) exacerbation (principal); Z87.891 Personal history of nicotine dependence; Z98.51 Tubal ligation status; Z98.890 Other specified postprocedural states; Z79.82 Long term (current) use of aspirin; Z79.899 Other long term (current) drug therapy; Z88.1 Allergy status to other antibiotic agents

== ENCOUNTER → 2018-03-09 | Outpatient (CLI) | payer OTHER ==
[~2018-03-09] MED LIST changes: +BASAG SOL SQ
[2018-03-09 08:40] LABS: BILIRUBIN NEGATIVE (NEGATIVE); BLOOD NEGATIVE (NEGATIVE); CLARITY SL CLOUDY (CLEAR); COLOR YELLOW (YELLOW); GLUCOSE NEGATIVE (NEGATIVE); KETONE NEGATIVE (NEGATIVE); LEUKO ESTERASE NEGATIVE (NEGATIVE); NITRITE NEGATIVE (NEGATIVE); SPECIFIC GRAVITY 1.025 (1.005-1.030); UROBILINOGEN 0.2 E.U./dl (0.2-1.0)
[2018-03-09 08:45] LABS: BASO # 0.1 10*3/uL (0.0-0.1); BASO % 1.1 % (0.0-1.0); EOS # 0.3 10*3/uL (0.0-0.4); EOS % 3.3 % (1.0-4.0); HEMATOCRIT 40.1 % (37.0-47.0); HEMOGLOBIN 13.3 g/dl (12.0-16.0); LYMPH # 2.8 10*3/uL (1.3-4.4); LYMPH % 27.2 % (27.0-41.0); MEAN CELL VOLUME 89.9 fl (81.0-99.0); MEAN CORPUSCULAR HGB 29.8 pg (27.0-31.0); MEAN CORPUSCULAR HGB CONC 33.2 g/dl (33.0-37.0); MEAN PLATELET VOLUME 11.9 fl (9.6-12.3); MONO # 0.8 10*3/uL (0.1-1.0); MONO % 8.1 % (3.0-9.0); NEUT # 6.2 10*3/uL (2.3-7.9); PLATELET COUNT AUTOMATED 284 10*3/uL (130-400); RED BLOOD COUNT 4.46 10*6/uL (4.10-5.10); RED CELL DISTRI WIDTH 13.5 % (0-14.5); WHITE BLOOD COUNT 10.3 10*3/uL (4.8-10.8)
[2018-03-09 09:14] LABS: ALBUMIN 3.7 gm/dl (3.1-4.5); CREATININE 1.35 mg/dL (0.55-1.02); POTASSIUM 4.3 mmol/L (3.5-5.1)
[2018-03-09 09:35] LABS: VITAMIN D, 25-HYDROXY 32.5 ng/mL (30-100)
[2018-03-09 09:36] LABS: PTH INTACT 38.7 pg/mL (18.5-88.0)
[2018-03-09 10:03] LABS: BACTERIA TRACE; WBC 0-2 wbc/hpf (0-5)
== END | disposition home or self-care (01) ==
LOC: LAB 07:43 → MAMMO 08:20
PROVIDERS: Internal Medicine Nephrology
DX: Z12.31 Encounter for screening mammogram for malignant neoplasm of breast (principal); N18.3 Chronic kidney disease, stage 3 (moderate); E55.9 Vitamin D deficiency, unspecified

== ENCOUNTER 2018-06-09 15:46 | Emergency (ER) | payer OTHER ==
[~2018-06-09] VITALS: Ht 157.4 cm; Wt 90.7 kg
[2018-06-09 16:04] LABS: BASO # 0.1 10*3/uL (0.0-0.1); BASO % 1.1 % (0.0-1.0); EOS # 0.2 10*3/uL (0.0-0.4); EOS % 2.1 % (1.0-4.0); HEMATOCRIT 42.1 % (37.0-47.0); HEMOGLOBIN 14.2 g/dl (12.0-16.0); LYMPH # 1.8 10*3/uL (1.3-4.4); LYMPH % 17.5 % (27.0-41.0); MEAN CELL VOLUME 90.5 fl (81.0-99.0); MEAN CORPUSCULAR HGB 30.5 pg (27.0-31.0); MEAN CORPUSCULAR HGB CONC 33.7 g/dl (33.0-37.0); MEAN PLATELET VOLUME 11.2 fl (9.6-12.3); MONO # 0.6 10*3/uL (0.1-1.0); MONO % 6.3 % (3.0-9.0); NEUT # 7.4 10*3/uL (2.3-7.9); NEUT % 72.8 % (47.0-73.0); PLATELET COUNT AUTOMATED 305 10*3/uL (130-400); RED BLOOD COUNT 4.65 10*6/uL (4.10-5.10); WHITE BLOOD COUNT 10.2 10*3/uL (4.8-10.8)
[2018-06-09 16:19] LABS: ALBUMIN 3.9 gm/dl (3.1-4.5); CREATININE 1.42 mg/dL (0.55-1.02); POTASSIUM 4.3 mmol/L (3.5-5.1); TOTAL PROTEIN 8.3 gm/dL (6.4-8.2)
[2018-06-09] MEDS ORDERED: ZANTAC 150150 MG PO (17:16)
[2018-06-09] MEDS ORDERED: SUNMARK OMEPRAZ20 M1 PO (17:16)
[2018-06-09 18:00] LABS: BILIRUBIN NEGATIVE (NEGATIVE); BLOOD NEGATIVE (NEGATIVE); CLARITY SL CLOUDY (CLEAR); COLOR YELLOW (YELLOW); GLUCOSE NEGATIVE (NEGATIVE); KETONE NEGATIVE (NEGATIVE); LEUKO ESTERASE NEGATIVE (NEGATIVE); NITRITE NEGATIVE (NEGATIVE); SPECIFIC GRAVITY <= 1.005 (1.005-1.030); UROBILINOGEN 0.2 E.U./dl (0.2-1.0)
[2018-06-09 18:09] LABS: BACTERIA 1+
== END 2018-06-09 18:14 | disposition home or self-care (01) ==
LOC: ED 15:46
PROVIDERS: Nurse Practitioner Family
DX: R10.9 Unspecified abdominal pain (principal); R14.0 Abdominal distension (gaseous); R14.3 Flatulence; N18.9 Chronic kidney disease, unspecified; I10 Essential (primary) hypertension; J44.9 Chronic obstructive pulmonary disease, unspecified; E78.5 Hyperlipidemia, unspecified; E11.9 Type 2 diabetes mellitus without complications; Z88.1 Allergy status to other antibiotic agents; Z88.6 Allergy status to analgesic agent; Z79.899 Other long term (current) drug therapy; Z79.82 Long term (current) use of aspirin; Z87.891 Personal history of nicotine dependence

== ENCOUNTER → 2018-06-15 | Outpatient (CLI) | payer OTHER ==
[~2018-06-15] MED LIST changes: +SUNMARK OMEPRAZ20 M1 PO; +ZANTAC 150150 MG PO
== END | disposition home or self-care (01) ==
LOC: US 06-14 06:30
DX: K76.0 Fatty (change of) liver, not elsewhere classified (principal)

== ENCOUNTER → 2018-10-16 | Day surgery (SDC) | payer OTHER ==
[~2018-10-16] VITALS: Ht 157.4 cm; Wt 89.4 kg
[~2018-10-16] MED LIST changes: +BEVESPI AEROS10.7 GM INH
[2018-10-16 09:35] VITALS: BP 147/81
[2018-10-16 12:26] VITALS: BP 101/58
[2018-10-16 12:40] VITALS: BP 98/55
[2018-10-16 12:56] VITALS: BP 92/54
[2018-10-16 13:08] VITALS: BP 110/65
== END | disposition home or self-care (01) ==
LOC: SDC 10-12 08:00
DX: Z12.11 Encounter for screening for malignant neoplasm of colon (principal); K57.30 Diverticulosis of large intestine without perforation or abscess without bleeding; K64.8 Other hemorrhoids; M19.90 Unspecified osteoarthritis, unspecified site; J44.9 Chronic obstructive pulmonary disease, unspecified; E11.22 Type 2 diabetes mellitus with diabetic chronic kidney disease; I12.9 Hypertensive chronic kidney disease with stage 1 through stage 4 chronic kidney disease, or unspecified chronic kidney disease; N18.3 Chronic kidney disease, stage 3 (moderate); F32.9 Major depressive disorder, single episode, unspecified; K21.9 Gastro-esophageal reflux disease without esophagitis; E78.5 Hyperlipidemia, unspecified; E11.40 Type 2 diabetes mellitus with diabetic neuropathy, unspecified; E66.9 Obesity, unspecified; F41.9 Anxiety disorder, unspecified; Z68.36 Body mass index [BMI] 36.0-36.9, adult; Z88.1 Allergy status to other antibiotic agents; Z88.8 Allergy status to other drugs, medicaments and biological substances; Z87.891 Personal history of nicotine dependence; Z87.51 Personal history of pre-term labor; Z98.890 Other specified postprocedural states; Z87.01 Personal history of pneumonia (recurrent); Z79.84 Long term (current) use of oral hypoglycemic drugs; Z79.899 Other long term (current) drug therapy; Z79.82 Long term (current) use of aspirin; Z80.0 Family history of malignant neoplasm of digestive organs; Z82.49 Family history of ischemic heart disease and other diseases of the circulatory system; Z82.5 Family history of asthma and other chronic lower respiratory diseases; Z82.3 Family history of stroke

== ENCOUNTER 2018-12-08 16:44 | Emergency (ER) | payer OTHER ==
[~2018-12-08] VITALS: Ht 160 cm; Wt 90.7 kg
--- NOTE | ~2018-12-08 | EKG ---
[place], [place] ELECTROCARDIOGRAM REPORT NAME: ALYSON GRECO UNIT #: [id number] ROOM: DOCTOR: EPIPHANY DRAFT REPORT BIRTHDATE: [birth year] [facility] Test Date: 2018-12-08 Test Time: 17:13:01 Pat Name: ALYSON GRECO Department: er Room: 8 Gender: F Bow Maker: Shreya Bashir : 1960 Requested By: EARLINE GAMA PA-C Order Number: [id number] Reading MD: West Lyles MD Measurements Intervals [place] Rate: 80 P: 33 DC: 154 QRS: -18 QRSD: 90 T: 56 QT: 361 QTc: 417 Interpretive Statements Sinus rhythm Low voltage, precordial leads LVH by voltage Baseline wander in lead(s) V4 Compared to ECG 08/13/2018 15:06:59 Low QRS voltage now present Left ventricular hypertrophy now present Electronically Signed On 12-12-2018 4:07:46 PDT by West Lyles MD CM:EKGRPT:ELECTROCARDIOGRAM REPORT 1713 [id number] EARLINE [place] DRAFT REPORT EARLINE GAMA PA-C
[2018-12-08 17:35] LABS: BASO # 0.1 10*3/uL (0.0-0.1); EOS # 0.2 10*3/uL (0.0-0.4); EOS % 2.4 % (1.0-4.0); HEMATOCRIT 40.1 % (37.0-47.0); HEMOGLOBIN 13.3 g/dl (12.0-16.0); LYMPH # 2.1 10*3/uL (1.3-4.4); MEAN CELL VOLUME 90.7 fl (81.0-99.0); MEAN CORPUSCULAR HGB 30.1 pg (27.0-31.0); MEAN CORPUSCULAR HGB CONC 33.2 g/dl (33.0-37.0); MEAN PLATELET VOLUME 11.6 fl (9.6-12.3); MONO # 0.5 10*3/uL (0.1-1.0); MONO % 5.6 % (3.0-9.0); NEUT # 6.2 10*3/uL (2.3-7.9); NEUT % 67.6 % (47.0-73.0); PLATELET COUNT AUTOMATED 286 10*3/uL (130-400); RED BLOOD COUNT 4.42 10*6/uL (4.10-5.10); RED CELL DISTRI WIDTH 13.3 % (0-14.5); WHITE BLOOD COUNT 9.2 10*3/uL (4.8-10.8)
[2018-12-08 17:44] LABS: INTERNATIONAL NORM RATIO 0.9 (2.0-3.5)
[2018-12-08 17:58] LABS: ALBUMIN 3.8 gm/dl (3.1-4.5); ALKALINE PHOSPHATASE 76 U/L (45-117); BUN 31 mg/dl (7-24); CHLORIDE 109 mmol/L (98-107); CREATININE 1.36 mg/dL (0.55-1.02); POTASSIUM 4.3 mmol/L (3.5-5.1); SGOT/AST 14 IU/L (3-35); SGPT/ALT 28 U/L (12-78); SODIUM 141 mmol/L (136-145); TOTAL PROTEIN 8.2 gm/dL (6.4-8.2)
[2018-12-08 18:02] LABS: TROPONIN I < 0.015 ng/ml (<0.045)
[2018-12-08] MEDS ORDERED: DELTASONE20 M1 PO (18:56)
[2018-12-08] MEDS ORDERED: AMOXICILLIN500 M2 PO (18:56)
== END 2018-12-08 19:12 | disposition home or self-care (01) ==
LOC: ED 16:44
PROVIDERS: Physician Assistant
DX: M79.632 Pain in left forearm (principal); J44.1 Chronic obstructive pulmonary disease with (acute) exacerbation; Z87.891 Personal history of nicotine dependence; Z88.1 Allergy status to other antibiotic agents; Z79.899 Other long term (current) drug therapy; Z79.84 Long term (current) use of oral hypoglycemic drugs; Z79.82 Long term (current) use of aspirin

== ENCOUNTER → 2018-12-26 | Outpatient (CLI) | payer OTHER ==
--- NOTE | ~2018-12-26 | HM ---
[place], [place] HOLTER MONITOR REPORT NAME: ALYSON GRECO UNIT #: [id number] ROOM: DOCTOR: JESSE JUAREZ MD BIRTHDATE: [birth year] DOS: 12/28/2018 HOLTER MONITOR REPORT The patient underwent the Holter monitor, remained in sinus rhythm throughout the entire period. The patient had a 24-hour Holter monitor. Minimum heart rate 51, maximum heart rate is 113, average heart rate of 77 beats per minute. The patient did not have any significant cardiac dysrhythmia, short episode of what appears to be sinus tachycardia. The patient had occasional premature atrial contractions. No other cardiac dysrhythmia as mentioned, no pauses. FINAL IMPRESSION: Mostly sinus rhythm with an episode of sinus tachycardia, isolated PACs, no bradycardic episodes. No pauses. JESSE JUAREZ MD CM:HOLTER:HOLTER MONITOR REPORT 1416 1427 JESSE JUAREZ MD
== END | disposition home or self-care (01) ==
LOC: CARD 10:00
DX: E11.9 Type 2 diabetes mellitus without complications (principal); R00.2 Palpitations

== ENCOUNTER 2019-03-26 20:26 | Emergency (ER) | payer OTHER ==
[~2019-03-26] VITALS: Ht 157.4 cm; Wt 87.5 kg
[2019-03-26 21:40] LABS: BASO # 0.1 10*3/uL (0.0-0.1); BASO % 1.2 % (0.0-1.0); EOS # 0.3 10*3/uL (0.0-0.4); EOS % 2.2 % (1.0-4.0); HEMATOCRIT 40.5 % (37.0-47.0); HEMOGLOBIN 13.4 g/dl (12.0-16.0); LYMPH # 2.8 10*3/uL (1.3-4.4); LYMPH % 24.7 % (27.0-41.0); MEAN CELL VOLUME 91.4 fl (81.0-99.0); MEAN CORPUSCULAR HGB 30.2 pg (27.0-31.0); MEAN CORPUSCULAR HGB CONC 33.1 g/dl (33.0-37.0); MEAN PLATELET VOLUME 11.3 fl (9.6-12.3); MONO # 0.8 10*3/uL (0.1-1.0); MONO % 6.8 % (3.0-9.0); NEUT # 7.2 10*3/uL (2.3-7.9); NEUT % 64.7 % (47.0-73.0); PLATELET COUNT AUTOMATED 308 10*3/uL (130-400); RED BLOOD COUNT 4.43 10*6/uL (4.10-5.10); RED CELL DISTRI WIDTH 12.5 % (0-14.5); WHITE BLOOD COUNT 11.2 10*3/uL (4.8-10.8)
[2019-03-26 21:55] LABS: ALBUMIN 3.8 gm/dl (3.1-4.5); CREATININE 1.41 mg/dL (0.55-1.02); TOTAL PROTEIN 8.7 gm/dL (6.4-8.2)
== END 2019-03-26 23:58 | disposition home or self-care (01) ==
LOC: ED 20:26
PROVIDERS: Internal Medicine
DX: R51 Headache (principal); I12.9 Hypertensive chronic kidney disease with stage 1 through stage 4 chronic kidney disease, or unspecified chronic kidney disease; E11.22 Type 2 diabetes mellitus with diabetic chronic kidney disease; N18.9 Chronic kidney disease, unspecified; E78.00 Pure hypercholesterolemia, unspecified; J44.9 Chronic obstructive pulmonary disease, unspecified; Z88.1 Allergy status to other antibiotic agents; Z88.8 Allergy status to other drugs, medicaments and biological substances; Z79.899 Other long term (current) drug therapy; Z79.2 Long term (current) use of antibiotics; Z79.82 Long term (current) use of aspirin; Z87.891 Personal history of nicotine dependence

== ENCOUNTER → 2019-06-04 | Outpatient (CLI) | payer OTHER ==
[2019-06-04 11:28] LABS: BASO # 0.2 10*3/uL (0.0-0.1); BASO % 1.5 % (0.0-1.0); EOS # 0.3 10*3/uL (0.0-0.4); EOS % 2.9 % (1.0-4.0); HEMATOCRIT 43.1 % (37.0-47.0); HEMOGLOBIN 14.3 g/dl (12.0-16.0); LYMPH # 3.1 10*3/uL (1.3-4.4); LYMPH % 29.3 % (27.0-41.0); MEAN CELL VOLUME 90.5 fl (81.0-99.0); MEAN CORPUSCULAR HGB CONC 33.2 g/dl (33.0-37.0); MEAN PLATELET VOLUME 11.4 fl (9.6-12.3); MONO # 0.7 10*3/uL (0.1-1.0); MONO % 6.9 % (3.0-9.0); NEUT # 6.3 10*3/uL (2.3-7.9); PLATELET COUNT AUTOMATED 351 10*3/uL (130-400); RED BLOOD COUNT 4.76 10*6/uL (4.10-5.10); RED CELL DISTRI WIDTH 13.1 % (0-14.5); WHITE BLOOD COUNT 10.7 10*3/uL (4.8-10.8)
[2019-06-04 11:30] LABS: BILIRUBIN NEGATIVE (NEGATIVE); BLOOD NEGATIVE (NEGATIVE); CLARITY SL CLOUDY (CLEAR); COLOR YELLOW (YELLOW); GLUCOSE NEGATIVE (NEGATIVE); KETONE NEGATIVE (NEGATIVE); LEUKO ESTERASE NEGATIVE (NEGATIVE); NITRITE NEGATIVE (NEGATIVE); PH 5.5 (5.0-9.0); UROBILINOGEN 0.2 E.U./dl (0.2-1.0)
[2019-06-04 11:41] LABS: ALBUMIN 3.7 gm/dl (3.1-4.5); CREATININE 1.26 mg/dL (0.55-1.02); PHOSPHOROUS 2.8 mg/dL (2.5-4.9)
[2019-06-04 11:46] LABS: URINE CREATININE RANDOM 78.4 mg/dL
[2019-06-04 11:52] LABS: BACTERIA 1+
[2019-06-04 13:26] LABS: PTH INTACT 74.3 pg/mL (18.5-88.0); VITAMIN D, 25-HYDROXY 34.4 ng/mL (30-100)
== END | disposition home or self-care (01) ==
LOC: LAB 11:00
PROVIDERS: Internal Medicine Nephrology
DX: E55.9 Vitamin D deficiency, unspecified (principal); N18.3 Chronic kidney disease, stage 3 (moderate)

== ENCOUNTER 2019-06-11 10:09 | Emergency (ER) | payer OTHER ==
[~2019-06-11] VITALS: Ht 157.4 cm; Wt 93.9 kg
[2019-06-11 11:05] LABS: BASO # 0.1 10*3/uL (0.0-0.1); BASO % 1.2 % (0.0-1.0); EOS # 0.2 10*3/uL (0.0-0.4); EOS % 1.5 % (1.0-4.0); HEMATOCRIT 44.1 % (37.0-47.0); HEMOGLOBIN 14.6 g/dl (12.0-16.0); LYMPH # 2.1 10*3/uL (1.3-4.4); LYMPH % 17.7 % (27.0-41.0); MEAN CELL VOLUME 90.6 fl (81.0-99.0); MEAN CORPUSCULAR HGB CONC 33.1 g/dl (33.0-37.0); MEAN PLATELET VOLUME 11.3 fl (9.6-12.3); MONO # 0.7 10*3/uL (0.1-1.0); NEUT # 8.8 10*3/uL (2.3-7.9); NEUT % 73.2 % (47.0-73.0); PLATELET COUNT AUTOMATED 316 10*3/uL (130-400); RED BLOOD COUNT 4.87 10*6/uL (4.10-5.10)
[2019-06-11 11:14] LABS: INTERNATIONAL NORM RATIO 0.9 (2.0-3.5)
[2019-06-11 11:37] LABS: ALBUMIN 3.9 gm/dl (3.1-4.5); ALKALINE PHOSPHATASE 94 U/L (45-117); BUN 21 mg/dl (7-24); CHLORIDE 105 mmol/L (98-107); CREATININE 1.35 mg/dL (0.55-1.02); SGOT/AST 20 IU/L (3-35); SGPT/ALT 36 U/L (12-78); SODIUM 140 mmol/L (136-145); TOTAL PROTEIN 8.3 gm/dL (6.4-8.2)
[2019-06-11 11:38] LABS: TROPONIN I < 0.015 ng/ml (<0.045)
[2019-06-11] MEDS ORDERED: AMOXICILLIN500 M2 PO (12:47)
[2019-06-11] MEDS ORDERED: PREDNISONE20 M1 PO (12:47)
== END 2019-06-11 12:54 | disposition home or self-care (01) ==
LOC: ED 10:09
PROVIDERS: Physician Assistant
DX: J40 Bronchitis, not specified as acute or chronic (principal); J44.9 Chronic obstructive pulmonary disease, unspecified; Z87.891 Personal history of nicotine dependence; Z79.899 Other long term (current) drug therapy; Z79.82 Long term (current) use of aspirin; Z88.1 Allergy status to other antibiotic agents; Z88.6 Allergy status to analgesic agent

== ENCOUNTER → 2019-08-09 | Outpatient (CLI) | payer OTHER ==
[~2019-08-09] MED LIST changes: +PREDNISONE20 M1 PO
== END | disposition home or self-care (01) ==
LOC: MAMMO 09:12
DX: Z12.31 Encounter for screening mammogram for malignant neoplasm of breast (principal)

== ENCOUNTER → 2019-12-12 | Outpatient (CLI) | payer OTHER | END | disposition home or self-care (01) | LOC: COVID19 00:34 | DX: J01.10 Acute frontal sinusitis, unspecified (principal); Z20.828 Contact with and (suspected) exposure to other viral communicable diseases ==

== ENCOUNTER 2020-03-03 19:00 | Emergency (ER) | payer OTHER ==
[~2020-03-03] VITALS: Wt 87.1 kg
[2020-03-03 22:02] LABS: BASO # 0.1 10*3/uL (0.0-0.1); BASO % 0.9 % (0.0-1.0); EOS # 0.2 10*3/uL (0.0-0.4); EOS % 1.2 % (1.0-4.0); HEMATOCRIT 43.9 % (37.0-47.0); LYMPH # 2.1 10*3/uL (1.3-4.4); LYMPH % 15.9 % (27.0-41.0); MEAN CELL VOLUME 89.4 fl (81.0-99.0); MEAN CORPUSCULAR HGB 29.7 pg (27.0-31.0); MEAN CORPUSCULAR HGB CONC 33.3 g/dl (33.0-37.0); MEAN PLATELET VOLUME 11.6 fl (9.6-12.3); MONO # 0.7 10*3/uL (0.1-1.0); MONO % 5.3 % (3.0-9.0); NEUT # 9.9 10*3/uL (2.3-7.9); NEUT % 76.2 % (47.0-73.0); PLATELET COUNT AUTOMATED 341 10*3/uL (130-400); RED BLOOD COUNT 4.91 10*6/uL (4.10-5.10); RED CELL DISTRI WIDTH 12.8 % (0-14.5); WHITE BLOOD COUNT 12.9 10*3/uL (4.8-10.8)
[2020-03-03 22:34] LABS: ALBUMIN 3.8 gm/dl (3.1-4.5); CREATININE 1.14 mg/dL (0.55-1.02); POTASSIUM 4.1 mmol/L (3.5-5.1); TOTAL PROTEIN 7.9 gm/dL (6.4-8.2)
[2020-03-03] MEDS ORDERED: AMOXICILLIN500 M2 PO (23:03)
== END 2020-03-03 23:49 | disposition home or self-care (01) ==
LOC: ED 19:00
PROVIDERS: Nurse Practitioner
DX: H66.92 Otitis media, unspecified, left ear (principal); Z79.899 Other long term (current) drug therapy; Z88.8 Allergy status to other drugs, medicaments and biological substances; Z79.82 Long term (current) use of aspirin

== ENCOUNTER → 2020-03-31 | Outpatient (CLI) | payer OTHER | END | disposition home or self-care (01) | LOC: RAD 11:09 | PROVIDERS: ATTEND Physician Assistant | DX: J43.2 Centrilobular emphysema (principal); E11.9 Type 2 diabetes mellitus without complications; R07.9 Chest pain, unspecified; I10 Essential (primary) hypertension ==

== ENCOUNTER → 2020-04-23 | Outpatient (CLI) | payer OTHER | END | disposition home or self-care (01) | LOC: COVID19 14:05 | PROVIDERS: ATTEND Physician Assistant | DX: Z20.828 Contact with and (suspected) exposure to other viral communicable diseases (principal) ==

== ENCOUNTER → 2020-07-16 | Outpatient (CLI) | payer OTHER | END | disposition home or self-care (01) | LOC: ORTHO 01:38 | PROVIDERS: ATTEND Orthopaedic Surgery | DX: M17.12 Unilateral primary osteoarthritis, left knee (principal) ==

== ENCOUNTER → 2020-08-18 | Outpatient (CLI) | payer OTHER | END | disposition home or self-care (01) | LOC: MAMMO 10:11 | PROVIDERS: ATTEND Physician Assistant | DX: Z12.31 Encounter for screening mammogram for malignant neoplasm of breast (principal) ==

== ENCOUNTER 2020-12-07 12:23 | Emergency (ER) | payer OTHER ==
[~2020-12-07] VITALS: Ht 157.4 cm; Wt 85.7 kg
[2020-12-07 13:13] LABS: BILIRUBIN Negative (Negative); BLOOD Negative (Negative); CLARITY Clear (Clear); COLOR Yellow (Yellow); GLUCOSE Negative (Negative); KETONE Negative (Negative); LEUKO ESTERASE Negative (Negative); NITRITE Negative (Negative); PH 7.5 (4.5-8.0); SPECIFIC GRAVITY 1.015 (1.001-1.030); UROBILINOGEN 0.2 E.U./dl (0.0-1.0)
[2020-12-07 13:18] LABS: BASO # 0.1 10*3/uL (0.0-0.1); BASO % 1.1 % (0.0-1.0); EOS # 0.3 10*3/uL (0.0-0.4); EOS % 2.9 % (1.0-4.0); HEMATOCRIT 42.6 % (37.0-47.0); LYMPH # 2.2 10*3/uL (1.3-4.4); LYMPH % 20.1 % (27.0-41.0); MEAN CELL VOLUME 90.6 fl (81.0-99.0); MEAN CORPUSCULAR HGB CONC 33.1 g/dl (33.0-37.0); MEAN PLATELET VOLUME 11.3 fl (9.6-12.3); MONO # 0.7 10*3/uL (0.1-1.0); MONO % 5.9 % (3.0-9.0); NEUT # 7.8 10*3/uL (2.3-7.9); NEUT % 69.3 % (47.0-73.0); PLATELET COUNT AUTOMATED 330 10*3/uL (130-400); RED CELL DISTRI WIDTH 12.4 % (0-14.5); WHITE BLOOD COUNT 11.2 10*3/uL (4.8-10.8)
[2020-12-07 13:20] LABS: BACTERIA 1+; WBC 0-2 wbc/hpf (0-5)
[2020-12-07 13:35] LABS: ALBUMIN 3.5 gm/dl (3.1-4.5); CREATININE 1.19 mg/dL (0.55-1.02); POTASSIUM 4.2 mmol/L (3.5-5.1)
[2020-12-07 13:37] LABS: TOTAL PROTEIN 7.6 gm/dL (6.4-8.2)
== END 2020-12-07 15:20 | disposition home or self-care (01) ==
LOC: ED 12:23
PROVIDERS: Emergency Medicine
DX: R10.31 Right lower quadrant pain (principal); G89.29 Other chronic pain; M54.9 Dorsalgia, unspecified; R11.0 Nausea; R35.0 Frequency of micturition; E66.9 Obesity, unspecified; J44.9 Chronic obstructive pulmonary disease, unspecified; E78.5 Hyperlipidemia, unspecified; E11.22 Type 2 diabetes mellitus with diabetic chronic kidney disease; I12.9 Hypertensive chronic kidney disease with stage 1 through stage 4 chronic kidney disease, or unspecified chronic kidney disease; N18.9 Chronic kidney disease, unspecified; F17.210 Nicotine dependence, cigarettes, uncomplicated; Z88.1 Allergy status to other antibiotic agents; Z88.8 Allergy status to other drugs, medicaments and biological substances; Z79.899 Other long term (current) drug therapy; Z79.2 Long term (current) use of antibiotics; Z79.82 Long term (current) use of aspirin; Z98.51 Tubal ligation status

== ENCOUNTER → 2021-02-20 | Outpatient (CLI) | payer OTHER | END | disposition home or self-care (01) | LOC: COVID19 18:10 | PROVIDERS: ATTEND Internal Medicine | DX: Z11.52 Encounter for screening for COVID-19 (principal) ==

== ENCOUNTER 2021-03-05 16:08 | Emergency (ER) | payer OTHER | END 2021-03-05 18:32 | disposition home or self-care (01) | LOC: ED 16:08 | DX: S01.81XA Laceration without foreign body of other part of head, initial encounter (principal); Z88.1 Allergy status to other antibiotic agents; Z79.899 Other long term (current) drug therapy; Z87.891 Personal history of nicotine dependence; W51.XXXA Accidental striking against or bumped into by another person, initial encounter; Y93.89 Activity, other specified; Y92.89 Other specified places as the place of occurrence of the external cause; Y99.8 Other external cause status ==

== ENCOUNTER 2021-04-05 09:42 | Emergency (ER) | payer OTHER ==
[2021-04-05 10:15] LABS: BASO # 0.1 10*3/uL (0.0-0.1); EOS # 0.3 10*3/uL (0.0-0.4); EOS % 2.4 % (1.0-4.0); HEMATOCRIT 43.3 % (37.0-47.0); LYMPH # 2.1 10*3/uL (1.3-4.4); LYMPH % 18.3 % (27.0-41.0); MEAN CELL VOLUME 90.4 fl (81.0-99.0); MEAN CORPUSCULAR HGB 30.5 pg (27.0-31.0); MEAN CORPUSCULAR HGB CONC 33.7 g/dl (33.0-37.0); MEAN PLATELET VOLUME 11.3 fl (9.6-12.3); MONO # 0.6 10*3/uL (0.1-1.0); MONO % 5.5 % (3.0-9.0); NEUT # 8.4 10*3/uL (2.3-7.9); NEUT % 72.4 % (47.0-73.0); PLATELET COUNT AUTOMATED 346 10*3/uL (130-400); RED BLOOD COUNT 4.79 10*6/uL (4.10-5.10); RED CELL DISTRI WIDTH 13.1 % (0-14.5); WHITE BLOOD COUNT 11.7 10*3/uL (4.8-10.8)
[2021-04-05 10:33] LABS: ALBUMIN 3.7 gm/dl (3.1-4.5); CREATININE 1.13 mg/dL (0.55-1.02); POTASSIUM 4.4 mmol/L (3.5-5.1); TOTAL PROTEIN 8.1 gm/dL (6.4-8.2)
== END 2021-04-05 10:11 | disposition home or self-care (01) ==
LOC: ED 09:42
PROVIDERS: Emergency Medicine
DX: F07.81 Postconcussional syndrome (principal); E78.5 Hyperlipidemia, unspecified; I10 Essential (primary) hypertension; J44.9 Chronic obstructive pulmonary disease, unspecified; F17.200 Nicotine dependence, unspecified, uncomplicated; Z79.899 Other long term (current) drug therapy; Z79.82 Long term (current) use of aspirin; Z88.1 Allergy status to other antibiotic agents

== ENCOUNTER → 2021-04-22 | Outpatient (CLI) | payer OTHER | END | disposition home or self-care (01) | LOC: CT 11:00 | PROVIDERS: ATTEND Nurse Practitioner Primary Care | DX: I67.82 Cerebral ischemia (principal); S09.90XA Unspecified injury of head, initial encounter; R42 Dizziness and giddiness; X58.XXXA Exposure to other specified factors, initial encounter; Y93.89 Activity, other specified; Y92.89 Other specified places as the place of occurrence of the external cause; Y99.8 Other external cause status ==

== ENCOUNTER → 2021-12-03 | Outpatient (CLI) | payer OTHER | END | disposition home or self-care (01) | LOC: MAMMO 13:00 | PROVIDERS: ATTEND Physician Assistant | DX: Z12.31 Encounter for screening mammogram for malignant neoplasm of breast (principal) ==

== ENCOUNTER → 2022-03-03 | Outpatient (CLI) | payer OTHER ==
[~2022-03-03] MED LIST changes: +AVAPRO75 MG PO; +BASAG SOL SC; +FLUTICASONE-SA1 EAC5 INH; +PEPCID20 MG PO; +SYMB160 INH; +TRULICITY1.5 MG/0.5 SC; +VALIUM5 MG PO; +VENTOLIN 02.5 MG/3 M INH; +VITAMIN C1000 M5 PO
== END | disposition home or self-care (01) ==
LOC: CARD 00:06
PROVIDERS: ATTEND Internal Medicine Cardiovascular Disease
DX: R94.39 Abnormal result of other cardiovascular function study (principal); I10 Essential (primary) hypertension; R07.2 Precordial pain

== ENCOUNTER → 2022-03-22 | Outpatient (CLI) | payer OTHER | END | disposition short-term general hospital (02) | LOC: CARD 03-08 09:30 | PROVIDERS: ATTEND Internal Medicine Cardiovascular Disease | DX: R07.2 Precordial pain (principal) ==

== ENCOUNTER → 2022-06-04 | Outpatient (CLI) | payer OTHER ==
[2022-06-04 14:47] LABS: BASO # 0.1 10*3/uL (0.0-0.1); BASO % 1.2 % (0.0-1.0); EOS # 0.2 10*3/uL (0.0-0.4); EOS % 2.2 % (1.0-4.0); HEMATOCRIT 47.9 % (37.0-47.0); LYMPH # 2.5 10*3/uL (1.3-4.4); LYMPH % 23.8 % (27.0-41.0); MEAN CORPUSCULAR HGB 29.9 pg (27.0-31.0); MEAN CORPUSCULAR HGB CONC 33.2 g/dl (33.0-37.0); MEAN PLATELET VOLUME 11.5 fl (9.6-12.3); MONO # 0.5 10*3/uL (0.1-1.0); MONO % 4.8 % (3.0-9.0); NEUT # 7.1 10*3/uL (2.3-7.9); NEUT % 67.6 % (47.0-73.0); PLATELET COUNT AUTOMATED 417 10*3/uL (130-400); RED BLOOD COUNT 5.32 10*6/uL (4.10-5.10); RED CELL DISTRI WIDTH 12.9 % (0-14.5); WHITE BLOOD COUNT 10.5 10*3/uL (4.8-10.8)
[2022-06-04 14:57] LABS: ACT PARTIAL THROMBO TIME 24.5 SECONDS (20.0-32.1)
[2022-06-04 16:48] LABS: POTASSIUM 4.6 mmol/L (3.4-5.1); TOTAL PROTEIN 8.1 gm/dL (6.0-8.0)
== END | disposition home or self-care (01) ==
LOC: LAB 14:21
PROVIDERS: ATTEND Internal Medicine Cardiovascular Disease
DX: Z01.812 Encounter for preprocedural laboratory examination (principal); I25.10 Atherosclerotic heart disease of native coronary artery without angina pectoris; R06.02 Shortness of breath; R07.89 Other chest pain

== ENCOUNTER → 2022-11-22 | Outpatient (CLI) | payer OTHER | END | disposition home or self-care (01) | LOC: US 15:00 | PROVIDERS: ATTEND Physician Assistant | DX: M79.89 Other specified soft tissue disorders (principal); M71.22 Synovial cyst of popliteal space [Baker], left knee ==

== ENCOUNTER → 2023-03-23 | Outpatient (CLI) | payer OTHER | END | disposition home or self-care (01) | LOC: ORTHO 02:25 | PROVIDERS: ATTEND Orthopaedic Surgery | DX: M17.12 Unilateral primary osteoarthritis, left knee (principal); M25.762 Osteophyte, left knee ==

== ENCOUNTER 2023-04-21 23:11 | Emergency (ER) | payer OTHER ==
[~2023-04-21] VITALS: Ht 167.6 cm; Wt 81.6 kg
[2023-04-22] MEDS ORDERED: PREDNISONE20 M1 PO (01:04)
[2023-04-22] MEDS ORDERED: ZITHROMAX250 MG PO (01:04)
== END 2023-04-22 01:09 | disposition home or self-care (01) ==
LOC: ED 23:11
DX: J40 Bronchitis, not specified as acute or chronic (principal); F41.9 Anxiety disorder, unspecified; Z88.1 Allergy status to other antibiotic agents; Z79.899 Other long term (current) drug therapy; Z79.4 Long term (current) use of insulin; Z79.82 Long term (current) use of aspirin; Z98.51 Tubal ligation status; Z98.890 Other specified postprocedural states; Z87.891 Personal history of nicotine dependence

== ENCOUNTER 2023-07-27 15:03 | Emergency (ER) | payer OTHER ==
[~2023-07-27] VITALS: Ht 157.4 cm; Wt 86.6 kg
[2023-07-27 17:29] LABS: BASO # 0.1 10*3/uL (0.0-0.1); EOS # 0.1 10*3/uL (0.0-0.4); HEMATOCRIT 45.6 % (37.0-47.0); LYMPH % 16.7 % (27.0-41.0); MEAN CELL VOLUME 92.7 fl (81.0-99.0); MEAN CORPUSCULAR HGB 30.7 pg (27.0-31.0); MEAN CORPUSCULAR HGB CONC 33.1 g/dl (33.0-37.0); MEAN PLATELET VOLUME 11.2 fl (9.6-12.3); MONO # 0.8 10*3/uL (0.1-1.0); MONO % 6.5 % (3.0-9.0); NEUT % 74.5 % (47.0-73.0); PLATELET COUNT AUTOMATED 313 10*3/uL (130-400); RED BLOOD COUNT 4.92 10*6/uL (4.10-5.10); RED CELL DISTRI WIDTH 12.4 % (0-14.5); WHITE BLOOD COUNT 12.1 10*3/uL (4.8-10.8)
[2023-07-27 17:31] LABS: BILIRUBIN Negative (Negative); BLOOD Negative (Negative); CLARITY Clear (Clear); COLOR Yellow (Yellow); GLUCOSE Negative (Negative); KETONE Negative (Negative); LEUKO ESTERASE Negative (Negative); NITRITE Negative (Negative); PH 5.5 (4.5-8.0); SPECIFIC GRAVITY 1.025 (1.001-1.030); UROBILINOGEN 0.2 E.U./dl (0.0-1.0)
[2023-07-27 17:39] LABS: RBC 0-2 rbc/hpf (0-2)
[2023-07-27 17:52] LABS: BUN 17 mg/dl (9-23); CHLORIDE 105 mmol/L (98-107); LIPASE 37 U/L (12-53); POTASSIUM 3.8 mmol/L (3.4-5.1); SGPT/ALT 23 U/L (5-49)
[2023-07-27] MEDS ORDERED: Acetaminophen/Hydrocodone 5 MG/325 MG TABLET PO ONE (19:20)
[2023-07-27] MEDS ORDERED: CYCLOBENZAPRINE10 MG PO (19:20)
== END 2023-07-27 19:37 | disposition home or self-care (01) ==
LOC: ED 15:03
PROVIDERS: Nurse Practitioner Family
DX: R10.31 Right lower quadrant pain (principal); R10.32 Left lower quadrant pain; E11.9 Type 2 diabetes mellitus without complications; J44.9 Chronic obstructive pulmonary disease, unspecified; I10 Essential (primary) hypertension; E78.00 Pure hypercholesterolemia, unspecified; F41.9 Anxiety disorder, unspecified; Z88.8 Allergy status to other drugs, medicaments and biological substances; Z98.51 Tubal ligation status; Z87.891 Personal history of nicotine dependence; Z98.890 Other specified postprocedural states

== ENCOUNTER 2024-02-02 12:08 | Emergency (ER) | payer OTHER ==
[~2024-02-02] VITALS: Ht 157.4 cm; Wt 77.6 kg
[2024-02-02] MEDS ORDERED: PREDNISONE20 M1 PO (12:26)
[2024-02-02] MEDS ORDERED: Acetaminophen/Oxycodone 5 MG/325 MG TABLET PO ONE (12:30)
[2024-02-02] MEDS ORDERED: methylPREDNISolone sod succ 125 MG VIAL IM ONE (12:30)
== END 2024-02-02 12:28 | disposition home or self-care (01) ==
LOC: ED 12:08
DX: M54.41 Lumbago with sciatica, right side (principal); M79.604 Pain in right leg; F41.9 Anxiety disorder, unspecified; J44.9 Chronic obstructive pulmonary disease, unspecified; E11.22 Type 2 diabetes mellitus with diabetic chronic kidney disease; I12.9 Hypertensive chronic kidney disease with stage 1 through stage 4 chronic kidney disease, or unspecified chronic kidney disease; N18.9 Chronic kidney disease, unspecified; E78.5 Hyperlipidemia, unspecified; E83.41 Hypermagnesemia; E78.00 Pure hypercholesterolemia, unspecified; Z88.1 Allergy status to other antibiotic agents; Z98.51 Tubal ligation status; Z98.890 Other specified postprocedural states; Z87.891 Personal history of nicotine dependence

== ENCOUNTER → 2024-10-16 | Outpatient (CLI) | payer OTHER | END | disposition home or self-care (01) | LOC: CT 12:49 | PROVIDERS: ATTEND Physician Assistant | DX: Z12.31 Encounter for screening mammogram for malignant neoplasm of breast (principal); Z12.2 Encounter for screening for malignant neoplasm of respiratory organs; K76.0 Fatty (change of) liver, not elsewhere classified; I25.10 Atherosclerotic heart disease of native coronary artery without angina pectoris; J43.9 Emphysema, unspecified; R92.323 Mammographic fibroglandular density, bilateral breasts; F17.210 Nicotine dependence, cigarettes, uncomplicated ==

== ENCOUNTER 2025-02-14 19:02 | Emergency (ER) | payer MEDICARE, OTHER ==
[~2025-02-14] VITALS: Ht 157.4 cm; Wt 81.6 kg
[2025-02-14] MEDS ORDERED: Acetaminophen/Hydrocodone 5 MG/325 MG TABLET PO ONE (19:30)
[2025-02-14] MEDS ORDERED: VIBRAMYCIN100 MG PO (21:18)
[2025-02-14] MEDS ORDERED: HYDROCODONE-AC1 EAC1 PO (21:18)
== END 2025-02-14 21:40 | disposition home or self-care (01) ==
LOC: ED 19:02
DX: L03.115 Cellulitis of right lower limb (principal); M79.671 Pain in right foot; Z87.891 Personal history of nicotine dependence; Z88.1 Allergy status to other antibiotic agents; Z79.899 Other long term (current) drug therapy; Z79.84 Long term (current) use of oral hypoglycemic drugs; Z79.4 Long term (current) use of insulin; Z79.82 Long term (current) use of aspirin